=== PATIENT | male | born 1970 | race American Indian/Alaskan Native ===

== ENCOUNTER 2016-09-12 04:34 | Emergency (ER) | payer OTHER ==
[2016-09-12] MEDS ORDERED: TYLENOL ONE (05:07)
[2016-09-12] MEDS: TYLENOL PO ONE (05:10)
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
[2016-09-12] MEDS: NORCO 5/325 PO ONE (11:05)
[2016-09-12] MEDS: FLEXERIL PO ONE (11:05)
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
[2016-09-12 12:47] VITALS: BP 141/71
== END 2016-09-12 12:03 | disposition home or self-care (01) ==
LOC: ED 04:34
DX: M19.022 Primary osteoarthritis, left elbow (principal); M25.50 Pain in unspecified joint; V49.49XA Driver injured in collision with other motor vehicles in traffic accident, initial encounter; X58.XXXA Exposure to other specified factors, initial encounter; Y93.9 Activity, unspecified; Y92.9 Unspecified place or not applicable; Y99.9 Unspecified external cause status